=== PATIENT | male | born 1965 | race Caucasian/White ===

== ENCOUNTER 2020-06-27 03:16 | Emergency (ER) | payer SELFPAY ==
[2020-06-27] MEDS ORDERED: Sodium Chloride 0.9% 1,000 ML ONE (04:02)
[2020-06-27] MEDS ORDERED: Sodium Chloride 0.9% 250 ML 250 ML ONE (04:02)
[2020-06-27 04:21] LABS: Hemoglobin 13.1 g/dL (14.0-18.0); Mean Corpuscular Volume 90.4 fL (78.0-98.0); Mean Platelet Volume 7.6 fL (7.4-10.4); Platelet Count 231 thou/uL (130-400); RBC Distribution Width 11.9 % (11.5-14.5); Red Blood Cell (RBC) Count 4.51 mill/uL (4.70-6.10); White Blood Cell (WBC) Count 8.2 thou/uL (4.8-10.8)
[2020-06-27 04:24] LABS: ALT (SGPT) 41 U/L (8-55); AST (SGOT) 44 U/L (5-34); Albumin 3.8 g/dL (3.5-5.0); Alkaline Phosphatase 76 U/L (40-110); Anion Gap 16 mmol/L (10-20); BUN (Urea Nitrogen) 10 mg/dL (8.4-25.7); Bilirubin, Total 0.4 mg/dL (0.2-1.2); CK (CPK) 382 U/L (30-200); Calc. Creatinine Clearance 0 mL/min (70-130); Calcium 8.8 mg/dL (7.8-10.44); Carbon Dioxide 25 mmol/L (22-29); Chloride 98 mmol/L (98-107); Estimated GFR-MDRD Greater than 90; Globulin 3.1 g/dL (2.4-3.5); Glucose 122 mg/dL (70-105); Lipase 35 U/L (8-78); Potassium 3.7 mmol/L (3.5-5.1); Protein, Total 6.9 g/dL (6.0-8.3); Sodium 135 mmol/L (136-145)
[2020-06-27 04:41] LABS: Band 3 % (5-11); Lymphocytes 17 % (21-51); MDiff Complete? YES; Monocytes 7 % (0-10); Neutrophil 73 % (42-75); Platelet Morphology Comment Appears Adequate; RBC Morphology Normal
[2020-06-27] MEDS ORDERED: Sodium Chloride 0.9% 100 ML BAG ONE (06:47)
--- NOTE | 2020-06-27 08:42 | RAD ---
CHEST 1 VIEW: Date: 06/27/2020 INDICATION: History of cough. COMPARISON: None. FINDINGS: Mild cardiomegaly is present. Pulmonary vasculature is within normal limits. No air space consolidati on is evident. No pleural effusion or pneumothorax is evident. No acute osseous abnormality is eviden t. IMPRESSION: No definite acute cardiopulmonary abnormality. POS: BH
[2020-06-27] MEDS ORDERED: Iopamidol 370 76% 125 ML VIAL FS ONE (10:39)
--- NOTE | 2020-06-27 11:05 | CT ---
CTA OF THE CHEST UTILIZING IV CONTRAST AND 3D REFORMATTED IMAGING: Date: 06/27/2020 INDICATION: History of dyspnea. COMPARISON: Chest radiograph dated 06/27/2020. FINDINGS: No definite central or segmental pulmonary embolus is evident. Respiratory motion artifact slightly l imits evaluation of the segmental pulmonary vessel. There are a few shotty appearing lymph nodes seen within the mediastinum. There are some patchy areas of ground-glass air space opacity within the pos terior right upper lobe best seen on image 51 of series 3. There is some mild infrahilar air space op acity seen within the right lower lobe. No pleural effusion is evident. 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 There are coronal artery thoracic aortic calcifications. Visualized upper abdomen reve aled no definite acute abnormality. No definite acute osseous abnormality is evident. There is scatte red degenerative and osteoarthritic change. IMPRESSION: 1. No definite central or segmental pulmonary embolus within the limitations of exam. 2. Some mild ground-glass air space opacities seen within the right upper lobe and right lower lobe suspicious for developing pneumonia. Recommend CT follow-up after appropriate therapy to document res olution. 3. Shotty-appearing lymph nodes within the mediastinum may be mildly reactive in nature. These can b e followed up on a follow-up CT evaluation. POS: BH
== END 2020-06-27 08:23 | disposition short-term general hospital (02) ==
LOC: MADERS 03:16
DX: J18.9 Pneumonia, unspecified organism (principal); L03.116 Cellulitis of left lower limb; E78.5 Hyperlipidemia, unspecified; E78.00 Pure hypercholesterolemia, unspecified; I10 Essential (primary) hypertension; F17.210 Nicotine dependence, cigarettes, uncomplicated; Z79.899 Other long term (current) drug therapy
CPT/HCPCS: 71045; 71275; 80053; 82550; 83690; 83880; 84484; 85025; 85379; 87040; 93005; 94760; 96365; 96367; J1956; J3370; J3490; J7050; Q9967

== ENCOUNTER 2020-07-15 15:20 | Emergency (ER) | payer MEDICARE, MEDICAID ==
--- NOTE | 2020-07-15 16:46 | RAD ---
XR Chest 1 View Portable HISTORY: Dyspnea COMPARISON: 06/27/2020 FINDINGS: The heart size is normal. Changes of median sternotomy are again seen. The lungs are well e xpanded without focal areas of consolidation, pneumothorax or pleural effusions. IMPRESSION: No radiographic evidence of acute cardiopulmonary process.
[2020-07-15 17:25] LABS: #Basophils 0.1 thou/uL (0.0-0.2); #Eosinphils 0.2 thou/uL (0.0-0.7); %Basophils 1.1 % (0.0-1.0); %Eosinophils 2.5 % (0.0-10.0); %Lymphocytes 41.4 % (21.0-51.0); %Monocytes 13.6 % (0.0-10.0); %Neutrophils 41.5 % (42.0-75.0); Mean Corpuscular HGB CONC 32.2 g/dL (32.0-36.0); Mean Corpuscular Hemoglobin 28.7 pg (27.0-31.0); Mean Platelet Volume 7.1 fL (7.4-10.4); Platelet Count 260 thou/uL (130-400); RBC Distribution Width 12.5 % (11.5-14.5); Red Blood Cell (RBC) Count 4.55 mill/uL (4.70-6.10); White Blood Cell (WBC) Count 7.2 thou/uL (4.8-10.8)
[2020-07-15 17:40] LABS: ALT (SGPT) 27 U/L (8-55); AST (SGOT) 27 U/L (5-34); Albumin 3.7 g/dL (3.5-5.0); Alkaline Phosphatase 67 U/L (40-110); Anion Gap 17 mmol/L (10-20); BUN (Urea Nitrogen) 10 mg/dL (8.4-25.7); Bilirubin, Total 0.4 mg/dL (0.2-1.2); Calc. Creatinine Clearance 0 mL/min (70-130); Calcium 8.7 mg/dL (7.8-10.44); Carbon Dioxide 23 mmol/L (22-29); Chloride 105 mmol/L (98-107); Estimated GFR-MDRD Greater than 90; Globulin 3.5 g/dL (2.4-3.5); Glucose 91 mg/dL (70-105); Potassium 4.4 mmol/L (3.5-5.1); Protein, Total 7.2 g/dL (6.0-8.3); Sodium 141 mmol/L (136-145)
[2020-07-15] MEDS ORDERED: Sodium Chloride 0.9% 1,000 ML ONE (18:38)
[2020-07-15] MEDS ORDERED: Azithromycin 250 MG TAB ONE (18:38)
== END 2020-07-15 20:30 | disposition home or self-care (01) ==
LOC: MADERS 15:20
DX: J18.9 Pneumonia, unspecified organism (principal); E78.5 Hyperlipidemia, unspecified; E78.00 Pure hypercholesterolemia, unspecified; I10 Essential (primary) hypertension; F17.210 Nicotine dependence, cigarettes, uncomplicated; I25.2 Old myocardial infarction; Z79.899 Other long term (current) drug therapy
CPT/HCPCS: 36415; 71045; 80053; 83605; 83880; 84484; 85025; 85379; 93005; J7050

== ENCOUNTER 2020-11-15 11:28 | Emergency (ER) | payer MEDICARE, MEDICAID ==
[2020-11-15] MEDS ORDERED: Pantoprazole 40 MG VIAL ONE (11:52)
[2020-11-15] MEDS ORDERED: Ondansetron PF 4 MG/2 ML Vial ONE (11:52)
[2020-11-15] MEDS ORDERED: Sodium Chloride 0.9% 1,000 ML ONE (11:52)
[2020-11-15 12:10] LABS: #Basophils 0.2 thou/uL (0.0-0.2); #Eosinphils 0.1 thou/uL (0.0-0.7); #Lymphocytes 2.1 thou/uL (1.20-3.40); #Monocytes 1.1 thou/uL (0.11-0.59); #Neutrophils 8.8 thou/uL (1.40-6.50); %Basophils 1.3 % (0.0-1.0); %Eosinophils 1.1 % (0.0-10.0); %Lymphocytes 17.1 % (21.0-51.0); %Monocytes 8.8 % (0.0-10.0); %Neutrophils 71.6 % (42.0-75.0); Hemoglobin 15.5 g/dL (14.0-18.0); Mean Corpuscular HGB CONC 30.8 g/dL (32.0-36.0); Mean Platelet Volume 9.2 fL (7.4-10.4); Platelet Count 241 thou/uL (130-400); RBC Distribution Width 12.4 % (11.5-14.5); Red Blood Cell (RBC) Count 5.52 mill/uL (4.70-6.10); White Blood Cell (WBC) Count 12.3 thou/uL (4.8-10.8)
[2020-11-15 12:24] LABS: ALT (SGPT) 28 U/L (8-55); AST (SGOT) 21 U/L (5-34); Albumin 4.2 g/dL (3.5-5.0); Alkaline Phosphatase 75 U/L (40-110); Anion Gap 16 mmol/L (10-20); BUN (Urea Nitrogen) 11 mg/dL (8.4-25.7); Bilirubin, Total 0.5 mg/dL (0.2-1.2); CRP (Inflammatory) 3.26 mg/dL (= or < 0.5); Calc. Creatinine Clearance 0 mL/min (70-130); Calcium 9.3 mg/dL (7.8-10.44); Carbon Dioxide 24 mmol/L (22-29); Chloride 104 mmol/L (98-107); Globulin 3.3 g/dL (2.4-3.5); Glucose 104 mg/dL (70-105); Potassium 4.5 mmol/L (3.5-5.1); Protein, Total 7.5 g/dL (6.0-8.3); Sodium 139 mmol/L (136-145)
[2020-11-15] MEDS ORDERED: Mineral Oil ENEMA ONE (12:49)
[2020-11-15] MEDS ORDERED: Magnesium Citrate 300 ML BOT ONE (14:19)
== END 2020-11-15 14:25 | disposition home or self-care (01) ==
LOC: MADERS 11:28
DX: K59.00 Constipation, unspecified (principal); G12.21 Amyotrophic lateral sclerosis; E78.5 Hyperlipidemia, unspecified; I10 Essential (primary) hypertension; I25.2 Old myocardial infarction; F17.210 Nicotine dependence, cigarettes, uncomplicated
CPT/HCPCS: 36415; 71045; 74018; 80053; 82150; 83690; 85025; 86140; 96374; 96375; C9113; J2405; J7050

== ENCOUNTER 2021-01-22 06:59 | Emergency (ER) | payer MEDICAID, MEDICARE ==
[2021-01-22] MEDS ORDERED: Morphine 4 MG/ML VIAL ONE (07:19)
[2021-01-22 07:45] LABS: Hemoglobin 13.2 g/dL (14.0-18.0); Mean Corpuscular HGB CONC 31.7 g/dL (32.0-36.0); Mean Corpuscular Hemoglobin 29.4 pg (27.0-31.0); Mean Corpuscular Volume 92.6 fL (78.0-98.0); Mean Platelet Volume 9.4 fL (7.4-10.4); Platelet Count 96 thou/uL (130-400); RBC Distribution Width 13.1 % (11.5-14.5); Red Blood Cell (RBC) Count 4.49 mill/uL (4.70-6.10); White Blood Cell (WBC) Count 9.3 thou/uL (4.8-10.8)
[2021-01-22 07:59] LABS: ALT (SGPT) 31 U/L (8-55); AST (SGOT) 24 U/L (5-34); Albumin 3.9 g/dL (3.5-5.0); Alkaline Phosphatase 61 U/L (40-110); Anion Gap 15 mmol/L (10-20); BUN (Urea Nitrogen) 15 mg/dL (8.4-25.7); Bilirubin, Total 0.5 mg/dL (0.2-1.2); Calc. Creatinine Clearance 0 mL/min (70-130); Calcium 8.8 mg/dL (7.8-10.44); Carbon Dioxide 22 mmol/L (22-29); Chloride 108 mmol/L (98-107); Globulin 2.7 g/dL (2.4-3.5); Glucose 109 mg/dL (70-105); Magnesium 1.6 mg/dL (1.6-2.6); Potassium 4.3 mmol/L (3.5-5.1); Protein, Total 6.6 g/dL (6.0-8.3); Sodium 141 mmol/L (136-145)
[2021-01-22 08:06] LABS: #Basophils 0.1 thou/uL (0.0-0.2); #Eosinphils 0.1 thou/uL (0.0-0.7); #Monocytes 0.6 thou/uL (0.11-0.59); #Neutrophils 6.5 thou/uL (1.40-6.50); %Basophils 1.1 % (0.0-1.0); %Eosinophils 0.8 % (0.0-10.0); %Monocytes 6.3 % (0.0-10.0); %Neutrophils 69.7 % (42.0-75.0); MDiff Complete? YES; Platelet Clumps MODERATE; Platelet Morphology Comment Appears Adequate; RBC Morphology Normal
[2021-01-22] MEDS ORDERED: Sodium Chloride 0.9% 1,000 ML ONE (08:53)
[2021-01-22] MEDS ORDERED: Sodium Chloride 0.9% 100 ML ONE (08:53)
[2021-01-22] MEDS ORDERED: Sodium Chloride 0.9% 250 ML 0 ML ONE (08:54)
[2021-01-22] MEDS ORDERED: Cefepime 2 GM VIAL ONE (08:54)
[2021-01-22] MEDS ORDERED: Iopamidol 370 76% 125 ML VIAL FS ONE (10:47)
== END 2021-01-22 10:01 | disposition short-term general hospital (02) ==
LOC: MADERS 06:59
DX: M79.604 Pain in right leg (principal); M79.605 Pain in left leg; R00.0 Tachycardia, unspecified; R07.9 Chest pain, unspecified; E78.5 Hyperlipidemia, unspecified; I10 Essential (primary) hypertension; I25.2 Old myocardial infarction; F17.210 Nicotine dependence, cigarettes, uncomplicated; Z79.899 Other long term (current) drug therapy
CPT/HCPCS: 71045; 71275; 80053; 83605; 83735; 83880; 84484; 85025; 85379; 93005; 94760; 96365; 96375; J0692; J2270; J3370; J3490; J7050; Q9967

== ENCOUNTER 2021-01-29 13:11 | Emergency (ER) | payer MEDICARE ==
[2021-01-29] MEDS ORDERED: Sodium Chloride 0.9% 1,000 ML ONE ×3 (13:42→16:03)
[2021-01-29] MEDS ORDERED: cefTRIAXone\\ROCEPHIN 1 GM VIAL ONE (13:42)
[2021-01-29] MEDS ORDERED: Aspirin Chewable 81 MG TAB ONE (13:42)
[2021-01-29] MEDS ORDERED: Sodium Chloride 0.9% 250 ML 250 ML ONE (13:42)
[2021-01-29] MEDS ORDERED: Sodium Chloride 0.9% 100 ML ONE (13:42)
[2021-01-29] MEDS ORDERED: Azithromycin 500 MG VIAL ONE (13:42)
[2021-01-29 13:47] LABS: #Basophils 0.1 thou/uL (0.0-0.2); #Eosinphils 0.1 thou/uL (0.0-0.7); #Lymphocytes 1.9 thou/uL (1.20-3.40); #Monocytes 0.8 thou/uL (0.11-0.59); #Neutrophils 7.7 thou/uL (1.40-6.50); %Basophils 0.9 % (0.0-1.0); %Eosinophils 0.8 % (0.0-10.0); %Lymphocytes 17.7 % (21.0-51.0); %Monocytes 7.9 % (0.0-10.0); %Neutrophils 72.8 % (42.0-75.0); Hemoglobin 13.8 g/dL (14.0-18.0); Mean Corpuscular HGB CONC 29.3 g/dL (32.0-36.0); Mean Corpuscular Hemoglobin 26.9 pg (27.0-31.0); Mean Corpuscular Volume 91.9 fL (78.0-98.0); Platelet Count 289 thou/uL (130-400); RBC Distribution Width 12.8 % (11.5-14.5); Red Blood Cell (RBC) Count 5.13 mill/uL (4.70-6.10); White Blood Cell (WBC) Count 10.6 thou/uL (4.8-10.8)
[2021-01-29 14:07] LABS: ALT (SGPT) 52 U/L (8-55); AST (SGOT) 34 U/L (5-34); Albumin 4.5 g/dL (3.5-5.0); Alkaline Phosphatase 84 U/L (40-110); Anion Gap 21 mmol/L (10-20); BUN (Urea Nitrogen) 18 mg/dL (8.4-25.7); Bilirubin, Total 0.6 mg/dL (0.2-1.2); CK (CPK) 307 U/L (30-200); Calc. Creatinine Clearance 0 mL/min (70-130); Calcium 9.8 mg/dL (7.8-10.44); Carbon Dioxide 22 mmol/L (22-29); Chloride 103 mmol/L (98-107); Globulin 3.2 g/dL (2.4-3.5); Glucose 100 mg/dL (70-105); Potassium 4.8 mmol/L (3.5-5.1); Protein, Total 7.7 g/dL (6.0-8.3); Sodium 141 mmol/L (136-145)
[2021-01-29] MEDS ORDERED: methylPREDNISolone Sod Succ/PF 125 MG/2 ML VIAL ONE (14:27)
[2021-01-29 16:23] LABS: Bilirubin Small (Negative); Blood, Urine Negative (Negative); Clarity Clear (Clear); Glucose, Urine (Dipstick) Negative (Negative); Ketone, Urine 40 mg/dL (Negative); Leukocyte Negative (Negative); Nitrite Negative (Negative); Protein, Urine (Dipstick) 30 mg/dL (Neg-Trace); Urobilinogen 0.2 mg/dL (Less than 2)
[2021-01-29 16:25] LABS: Specific Gravity, Urine 1.033 (1.002-1.036)
[2021-01-29 16:31] LABS: Bacteria/HPF Rare-Few HPF (None Seen); Mucous/LPF 2+ LPF (<2+); RBC/HPF None Seen HPF (0-3); Squamous Epithelial 0-3 HPF (0-3); WBC/HPF 0-3 HPF (0-3)
[2021-01-29] MEDS ORDERED: Morphine 4 MG/ML VIAL ONE (19:28)
== END 2021-01-29 19:44 | disposition short-term general hospital (02) ==
LOC: MADERS 13:11
DX: J44.1 Chronic obstructive pulmonary disease with (acute) exacerbation (principal); E86.0 Dehydration; E78.5 Hyperlipidemia, unspecified; I10 Essential (primary) hypertension; I25.2 Old myocardial infarction; F17.210 Nicotine dependence, cigarettes, uncomplicated; Z79.899 Other long term (current) drug therapy
CPT/HCPCS: 71045; 80053; 81003; 81015; 82550; 83605; 83880; 84484; 85025; 87040; 87086; 93005; 94760; 96365; 96375; J0456; J0696; J2270; J2930; J3490; J7050; J7620